=== PATIENT | male | born 1950 | race Caucasian/White ===

== ENCOUNTER → 2019-12-20 12:40 | Outpatient (CLI) | payer MEDICARE, SELFPAY ==
--- NOTE | ~2019-12-20 | XR_ITS ---
XR_CERV2-3V_CR DATE: 12/20/2019 12:55 INDICATION: Neck pain TECHNIQUE: Standing AP, open-mouth, lateral and swimmer views COMPARISON: None FINDINGS: There is straightening of the cervical spine. There is moderately prominent degenerative disc disease at C4-5, C5-6 and C6-7. There is uncovertebral joint spurring in the mid and lower cervical spine, most pronounced at C4-5, C 5-6 and C6-7. No fracture or dislocation or locked facet. C1 and C2 are normally aligned and the odontoid process i s intact. No prevertebral soft tissue swelling. IMPRESSION: Degenerative changes Straightening Reviewed, dictated and finalized at [facility]. Reviewed, dictated and finalized at [facility].
== END ==
PROVIDERS: PCP Family Medicine; Visit Provider Physician Assistant
DX: M54.2 Cervicalgia (principal)
CPT/HCPCS: 72040

== ENCOUNTER 2020-06-20 01:01 | Outpatient (CLI) | payer MEDICARE, SELFPAY ==
[2020-06-20 18:03] LABS: SARS-CoV-2 RNA PCR Negative
== END 2020-06-20 01:02 | disposition home or self-care (01) ==
LOC: ANHCOVIDDT 01:01
PROVIDERS: PCP Family Medicine; Visit Provider Internal Medicine Gastroenterology
DX: Z01.812 Encounter for preprocedural laboratory examination (principal); Z20.828 Contact with and (suspected) exposure to other viral communicable diseases
CPT/HCPCS: 87635; C9803; U0003

== ENCOUNTER 2020-06-23 01:54 | Day surgery (SDC) | payer MEDICARE, SELFPAY ==
[2020-06-11 11:18] VITALS: BMI 27.5
--- NOTE | 2020-06-23 09:03 | WPDANESEPPF ---
Anes - Initial Pre Proc Eval Procedure: Operation Date: 06/23/20 10:00 Proposed Procedures p Esophagogastroduodenoscopy - Giacomo Murray MD Date/Time: 06/23/20 09:03 Surgeon: Giacomo Murray MD Pre Op Diagnosis: GERD Patient Data Age: 70 Gender: M Height: 5 ft 10 in Weight: 87 kg Allergies Allergy/AdvReac Type Severity Reaction Status Date / Time No Known Allergies Allergy Verified 05/18/20 14:09 Home Medications Medication Instructions Recorded Confirmed Type blood sugar diagnostic #10 each 08/22/19 05/08/20 History calcium carb-vit [id number]-vrnd 1 tablet PO DAILY 08/22/19 06/11/20 History 333 mg-200 unit-133 mg-5 mg tablet cholecalciferol (vitamin D3) 25 1,000 unit PO DAILY 08/22/19 06/11/20 History mcg (1,000 unit) chewable tablet coconut oil 1,000 mg capsule 1,000 mg PO TID 08/22/19 06/11/20 History lancets #50 each 08/22/19 05/08/20 Rx metformin 500 mg tablet 500 mg PO .COMPLEX #360 tablet 11/18/19 06/11/20 Rx glimepiride 2 mg tablet 2 mg PO QAM #90 tablet 02/17/20 06/11/20 Rx esomeprazole magnesium 20 mg 20 mg PO DAILY #30 cap 05/08/20 06/11/20 Rx capsule,delayed release lisinopril 20 mg tablet 20 mg PO DAILY #90 tablet 06/09/20 06/11/20 Rx glucos sul [id number]-C-Mn 1 cap PO DAILY 06/11/20 06/11/20 History [Glucosamine Chondroitin] glucosamine-chondroitin [Osteo 2 tablet PO TID 06/11/20 06/11/20 History Bi-Flex] Patient hx anesthesia problems: none Family hx anesthesia problems: none PMFSH Past Medical History Medical History Colon cancer screening Dyslipidemia Essential hypertension Neck pain AYLIN (obstructive sleep apnea) Type 2 diabetes mellitus without complications Family History Family History Mother Family history of malignant neoplasm Father Family history of coronary artery disease Social History Social History Smoking status: Never smoker Alcohol intake: never Substance use: never Substance use type: does not use Living arrangements: with family Gender identity (if verbalized by the patient): Male Spiritual care concerns: No Anes - Eval Final PreProcedure Day of Procedure 06/23/20 09:03 Patient weight: overweight Heart: regular rate and rhythm Lungs: clear to auscultation Airway: Mallampati scale class II Neurological: alert and oriented Last oral intake: >/= 8 hours ASA classification: III Emergent: no Anesthetic plan: proceed Anesthesia type and monitoring: general GIVS and standard monitoring Informed Consent: The patient's anesthetic plan and its attendant risks and benefits were discussed with the patient/family/POA. Questions were solicited and answers provided to the satisfaction of the patient/family/POA.
[2020-06-23] MEDS: LACTATED RINGERS 1,000 ML 150 ML IV CONT (09:15)
[2020-06-23 09:25] LABS: Glucose Point of Care 146 (65-105)
[2020-06-23 09:26] VITALS: BP 150/86; PULSE 93; RESP 18; TEMP 36; O2SAT 99; BMI 27.4
--- NOTE | 2020-06-23 10:27 | PM.HPGS ---
History of Present Illness History of Present Illness Consent: Risks, benefits, and alternatives have been discussed and questions answered. Patient agrees to proceed with procedure. Chief complaint: GERD Narrative: Kelvin García is a 70 year old male with gerd, bloating better after switching to nexium Review of Systems Constitutional: Constitutional: Denies headache(s) and Denies weakness Eyes: Eyes: Denies blurry vision ENT: Reports Normal hearing present, Denies headache(s) and Denies neck pain Cardiovascular: Cardiovascular: Denies chest pain and Denies dyspnea Respiratory: Respiratory: Denies dyspnea Gastrointestinal: Gastrointestinal: Reports no additional gastrointestinal complaints Genitourinary: Genitourinary: Denies dysuria Musculoskeletal: Musculoskeletal: Denies neck pain Integumentary/Breasts: Skin/Breast: Denies dry skin Neurologic: Reports Normal hearing present, Denies headache(s) and Denies weakness Psychiatric: Psychiatric: Denies anxiety Endocrine: Endocrine: Denies change in body appearance Hematologic/Lymphatic: Hematologic/Lymphatic: Denies easy bleeding Allergic/Immunologic: Allergic/Immunologic: Denies urticaria PMFSH Past Medical History Medical History Colon cancer screening Dyslipidemia Essential hypertension Neck pain AYLIN (obstructive sleep apnea) Type 2 diabetes mellitus without complications Family History Family History Mother Family history of malignant neoplasm Father Family history of coronary artery disease Social History Social History Smoking status: Never smoker Alcohol intake: never Substance use: never Substance use type: does not use Living arrangements: with family Gender identity (if verbalized by the patient): Male Spiritual care concerns: No Meds Home Medications and Allergies Home Medications Medication Instructions Recorded Confirmed Type blood sugar diagnostic #10 each 08/22/19 05/08/20 History calcium carb-vit L1-qplrikwso-edpc 1 tablet PO DAILY 08/22/19 06/23/20 History 333 mg-200 unit-133 mg-5 mg tablet cholecalciferol (vitamin D3) 25 1,000 unit PO DAILY 08/22/19 06/23/20 History mcg (1,000 unit) chewable tablet coconut oil 1,000 mg capsule 1,000 mg PO TID 08/22/19 06/23/20 History lancets #50 each 08/22/19 05/08/20 Rx metformin 500 mg tablet 500 mg PO .COMPLEX #360 tablet 11/18/19 06/23/20 Rx glimepiride 2 mg tablet 2 mg PO QAM #90 tablet 02/17/20 06/23/20 Rx esomeprazole magnesium 20 mg 20 mg PO DAILY #30 cap 05/08/20 06/23/20 Rx capsule,delayed release lisinopril 20 mg tablet 20 mg PO DAILY #90 tablet 06/09/20 06/23/20 Rx glucos sul [id number]-C-Mn 1 cap PO DAILY 06/11/20 06/23/20 History [Glucosamine Chondroitin] glucosamine-chondroitin [Osteo 2 tablet PO TID 06/11/20 06/23/20 History Bi-Flex] Allergies Allergy/AdvReac Type Severity Reaction Status Date / Time No Known Allergies Allergy Verified 06/23/20 09:24 Vital Signs Vital Signs - 24 hr 06/23/20 09:26 Temperature 96.8 F L Pulse Rate 93 Respiratory Rate 18 Blood Pressure 150/86 H Pulse Oximetry 99 Exam Const: General: comfortable and no acute distress HENMT: General nose exam: Normal nares present Eyes: General: appearance normal, both eyes and all related structures Neck: Neck: no JVD Resp: Auscultation: clear to auscultation bilaterally Cardio: Rate: regular rate Rhythm: regular rhythm GI: Inspection: non-distended GI Palp: Yes Soft to palpation Skin: General skin exam: normal color Neuro: General: gait normal Speech: normal speech Extrem: General: normal to inspection Psych: Mental Status: mental status grossly normal Assessment and Plan Assessment and plan (1) GERD (gastroesophageal reflux disease): Code(s)
[2020-06-23 10:45] VITALS: BP 135/69; PULSE 104; RESP 29; O2SAT 95
[2020-06-23 10:55] VITALS: BP 114/83; PULSE 95; RESP 33; O2SAT 98
[2020-06-23 11:05] VITALS: BP 136/78; PULSE 95; RESP 26; O2SAT 98
== END 2020-06-23 11:23 | disposition home or self-care (01) ==
PROVIDERS: PCP Family Medicine; Visit Provider Internal Medicine Gastroenterology
PROC: 0DJ08ZZ Inspection of Upper Intestinal Tract, Via Natural or Artificial Opening Endoscopic (ICD-10-PCS; CPT 43235; principal; 2020-06-23 10:00)
DX: K21.9 Gastro-esophageal reflux disease without esophagitis (principal); K29.50 Unspecified chronic gastritis without bleeding; I10 Essential (primary) hypertension; E78.5 Hyperlipidemia, unspecified; E11.9 Type 2 diabetes mellitus without complications; G47.33 Obstructive sleep apnea (adult) (pediatric); Z79.84 Long term (current) use of oral hypoglycemic drugs
CPT/HCPCS: 43239; 88305; J2704; J7120

== ENCOUNTER 2020-12-10 14:43 | Outpatient (CLI) | payer MEDICARE, SELFPAY | END 2020-12-10 14:44 | disposition home or self-care (01) | LOC: ANHCOVIDVC 14:43 | PROVIDERS: PCP Family Medicine | DX: Z23 Encounter for immunization (principal) | CPT/HCPCS: 0001A; 91300 ==

== ENCOUNTER 2020-12-30 14:16 | Outpatient (CLI) | payer MEDICARE, SELFPAY ==
--- NOTE | ~2020-12-30 | XR_ITS ---
XR hip RT 2V w AP pelvis DATE: 12/30/2020 14:35 INDICATION: Loss of balance and fall. Right hip injury, pain TECHNIQUE: AP pelvis. AP and lateral views of right hip. COMPARISON: None FINDINGS: Degenerative disc disease is noted at L3-4, L4-5 and L5-S1. There is enthesopathy of the iliac wings, pubic bones and bilateral femoral greater trochanters. Normal alignment at the pubic symphysis and sacroiliac joints. No pelvic fracture or bone destruction is evident. No fracture or dislocation, avascular necrosis or bone destruction of the right hip. Hip joint spaces are symmetric and relatively preserved. IMPRESSION: No pelvic or right hip fracture or dislocation Reviewed, dictated and finalized at [facility].
--- NOTE | ~2020-12-30 | XR_ITS ---
XR lumbar spine 2-3V DATE: 12/30/2020 14:35 INDICATION: Low back pain TECHNIQUE: AP, lateral, coned lateral lumbosacral views COMPARISON: None FINDINGS: There is prominent degenerative spurring of the lower thoracic spine. Normal alignment of the lumbar vertebrae. No fracture or bone destruction or spondylolisthesis is trevor dent. The lumbar pedicles are intact. Moderately prominent degenerative disc disease throughout the lumbar and lumbosacral spine, with prom inent spurring. The sacroiliac joints are intact. IMPRESSION: Prominent degenerative spurring of the lower thoracic and lumbar spine, moderate degenera tive disc disease throughout the lumbar and lumbosacral spine, most pronounced at L3-4 through L5-S1 Reviewed, dictated and finalized at [facility]. IMPRESSION: Prominent degenerative spurring of the lower thoracic and lumbar sp ine, moderate degenerative disc disease throughout the lumbar and lumbosacral s pine, most pronounced at L3-4 through L5-S1
== END 2020-12-30 14:17 | disposition home or self-care (01) ==
PROVIDERS: PCP Family Medicine; Visit Provider Family Medicine
DX: M47.817 Spondylosis without myelopathy or radiculopathy, lumbosacral region (principal)
CPT/HCPCS: 72100; 73502

== ENCOUNTER 2020-12-31 14:37 | Outpatient (CLI) | payer MEDICARE, SELFPAY | END 2020-12-31 14:38 | disposition home or self-care (01) | LOC: ANHCOVIDVC 14:37 | PROVIDERS: PCP Family Medicine | DX: Z23 Encounter for immunization (principal) | CPT/HCPCS: 0002A; 91300 ==

== ENCOUNTER 2025-09-22 15:26 | Outpatient (CLI) | payer MEDICARE, SELFPAY ==
[2025-09-22 16:51] LABS: Hematocrit 38.6 % (42.0-52.0); Hemoglobin 13.1 g/dL (14.0-18.0); Mean Corpuscular HGB Conc 33.9 g/dl (32-36); Mean Corpuscular Hemoglobin 28.7 pg (26-34); Mean Corpuscular Volume 84.6 fl (80-100); Platelet Count Result 287 k/mm3 (150-375); Red Blood Count 4.56 M/mm3 (4.6-6.20); White Blood Count 7.0 K/mm3 (4.5-10.0)
[2025-09-22 17:08] LABS: Alanine Aminotransferase 17 U/L (6-50); Albumin Level 4.6 g/dL (3.5-5.1); Alkaline Phosphatase 59 U/L (38-126); Anion Gap 11 mmol/L (4-12); Aspartate Amino Transferase 22 U/L (17-59); Bilirubin,Total 1.4 mg/dL (0.2-1.3); Blood Urea Nitrogen 29 mg/dL (9-20); Calcium 9.6 mg/dL (8.4-10.2); Carbon Dioxide 25 mmol/L (22-30); Chloride 98 mmol/L (98-107); Estimated Glomerular Filt Rate 43; Glucose 329 mg/dL (65-110); Potassium 4.3 mmol/L (3.4-5.0); Sodium 134 mmol/L (137-145); Total Protein 7.7 g/dL (6.3-8.2)
[2025-09-22 17:48] LABS: Add Urine Microscopic? YES; Appearance Urine Clear (Clear); Glucose Urine UA 3+ mg/dL (Negative); Leukocyte Esterase Ur 1+ LEU/UL (Negative); Nitrate Urine Negative (Negative); Non Pathogenic Casts 0-2; Specific Grav Ur 1.023 (1.001-1.035)
== END 2025-09-22 15:27 | disposition home or self-care (01) ==
PROVIDERS: PCP Family Medicine
DX: E11.65 Type 2 diabetes mellitus with hyperglycemia (principal); R00.0 Tachycardia, unspecified
CPT/HCPCS: 36415; 80053; 81001; 85027